=== PATIENT | male | born 1955 | race Caucasian/White ===

== ENCOUNTER 2022-08-26 06:43 | Inpatient (IN) | payer BC, MEDICARE ==
[~2022-08-26] VITALS: Ht 188 cm; Wt 106.8 kg
[2022-08-26] VITALS (20 sets, daily range): BP systolic 83–132; BP diastolic 22–86
[~2022-08-26 06:43] MED LIST: ASPI-611 PO; ATOR80TA PO; EZET10TA6 PO; FENO134C22 PO; LOSA25TA96 PO; NITR0.4T SL; VALA-7 PO
[2022-08-26] MEDS ORDERED: heparin 10,000 units/1 ML INJ IV PRN (06:50)
[2022-08-26] MEDS ORDERED: heparin 10,000 units/1 ML INJ IV ONE (06:50)
[2022-08-26] MEDS ORDERED: heparin 25,000 UNIT/250ml bag 250 ML IV PRN (06:50)
[2022-08-26 07:01] LABS: BASOPHILS # (AUTO) 0.1 X10'3 (0-0.2); BASOPHILS % (AUTO) 0.7 % (0-1); EOSINOPHILS # (AUTO) 0.5 X10'3 (0-0.9); EOSINOPHILS % (AUTO) 5.7 % (0-6); HEMATOCRIT 47.3 % (42.0-52.0); HEMOGLOBIN 16.3 g/dl (14.0-17.9); LYMPHOCYTES # (AUTO) 3.3 X10'3 (1.1-4.8); LYMPHOCYTES % (AUTO) 38.4 % (21-51); MEAN CORPUSCULAR HEMOGLOBIN 33.4 PG (27.0-31.0); MEAN CORPUSCULAR HGB CONC 34.4 g/dL (33.0-36.5); MEAN CORPUSCULAR VOLUME 97.1 FL (78-98); MONOCYTES # (AUTO) 0.6 X10'3 (0-0.9); MONOCYTES % (AUTO) 7.3 % (2-12); NEUTROPHILS # (AUTO) 4.2 X10'3 (1.8-7.7); NEUTROPHILS % (AUTO) 47.9 % (42-75); PLATELET COUNT 316 X10'3 (140-440); RED BLOOD COUNT 4.87 X10'6 (4.70-6.10); RED CELL DISTRIBUTION WIDTH 13.8 % (11.5-14.5); WHITE BLOOD COUNT 8.7 X10'3 (4.5-11.0)
[2022-08-26] MEDS ORDERED: fentaNYL/PF 50MCG/1 ML 2ML syringe ONE ×3 (07:06→09:23)
[2022-08-26] MEDS ORDERED: LIDOcaine 1% 30ml preserv. free vial ONE (07:06)
[2022-08-26] MEDS ORDERED: midazolam 1 mg/ML 2ml injection ONE ×2 (07:06→08:03)
[2022-08-26] MEDS ORDERED: iohexol 350MG/ML 100ml bottle IV ONE ×3 (07:06→09:00)
[2022-08-26] MEDS ORDERED: heparin 1,000unit/ml 10ml vial 10 ML ONE (07:06)
--- NOTE | 2022-08-26 07:06 | NUR ---
is at bedside
--- NOTE | 2022-08-26 07:09 | NUR ---
Dr Israel at BS
[2022-08-26] MEDS ORDERED: verapamil 2.5 mg/ml inj IV ONE (07:16)
[2022-08-26 07:34] LABS: APTT 41 SECONDS (22-32)
[2022-08-26] MEDS ORDERED: amiodarone 50MG/ML inj IV ONE (07:37)
[2022-08-26] MEDS ORDERED: magnesium 1 GM/2 ML inj ONE (07:38)
[2022-08-26] MEDS ORDERED: amiodarone 150mg/dext, iso-os 100 ML IV ONE (07:38)
[2022-08-26 07:44] LABS: ALANINE AMINOTRANSFERASE 38 U/L (12-78); ALBUMIN 3.7 G/DL (3.4-5.0); ALBUMIN/GLOBULIN RATIO 1.1 (1.1-1.5); ALKALINE PHOSPHATASE 64 IU/L (46-116); ANION GAP 9 (8-16); ASPARTATE AMINO TRANSFERASE 41 U/L (10-37); BILIRUBIN,TOTAL 0.6 MG/DL (0.1-1.0); BLOOD UREA NITROGEN 16 MG/DL (7-18); BUN/CREATININE RATIO 12.9 (5.4-32.0); CHLORIDE 106 MMOL/L (99-107); CREATININE 1.24 MG/DL (0.60-1.10); GLUCOSE 146 MG/DL (70-104); POTASSIUM 4.4 MMOL/L (3.5-5.1); SODIUM 139 MMOL/L (135-145); TOTAL CARBON DIOXIDE 24.1 MMOL/L (24-32); eGFR 58 ML/MIN
[2022-08-26] MEDS ORDERED: HEPARIN SOD PORK IV ONE (08:00)
[2022-08-26] MEDS ORDERED: NACL IV ONE (08:00)
[2022-08-26] MEDS ORDERED: heparin 10,000 units/1 ML INJ ONE (08:00)
[2022-08-26] MEDS ORDERED: nitroGLYCERIN in D5W 50mg/250ml (Tridil) infusion IV ONE (08:00)
[2022-08-26] MEDS ORDERED: heparin 1,000 UNITS/NS 500ml 500 ML ONE (08:16)
[2022-08-26] MEDS ORDERED: tirofiban 5mg in NS 100mL 100 ML IV ONE (08:27)
[2022-08-26] MEDS ORDERED: DOPamine 400mg/D5W 250ml 250 ML IV ONE (08:38)
[2022-08-26] MEDS ORDERED: ondansetron/PF 4mg/2ml inj ONE (09:38)
[2022-08-26] MEDS ORDERED: ticagrelor 90mg tablet ONE (09:48)
[2022-08-26] MEDS: tirofiban 12.5mg in NS 250mL IV SCH ×2 (11:58→23:29)
[2022-08-26] MEDS ORDERED: NIRM1TAB PO (12:27)
[2022-08-26] MEDS ORDERED: nitroGLYCERIN 0.4mg SUBLingual tab SL PRN (13:00)
[2022-08-26] MEDS ORDERED: aspirin 81mg tab.chew PO ONE (13:15)
[2022-08-26] MEDS: sodium bicarbonate (8.4%) inj. 150 MEQ in sodium chloride 0.45% 1,000 ML IV SCH (13:22)
[2022-08-26] MEDS: amiodarone/D5 360MG/200ML BAG 200 ML IV SCH ×2 (14:17→19:55)
[2022-08-26 15:37] LABS: CHOL/HDL RATIO 3.4 (0.00-4.99); CHOLESTEROL 100 MG/DL (0-200); HDL CHOLESTEROL 29 MG/DL (35-60); LDL CHOLESTEROL 56 MG/DL (50-100); TRIGLYCERIDES 61 MG/DL (20-135)
[2022-08-26] MEDS ORDERED: magnesium Cl slow-release 64mg tablet PO PRN (16:15)
[2022-08-26] MEDS ORDERED: morphine 2 MG/ML inj. syringe IV PRN (16:15)
[2022-08-26] MEDS ORDERED: HYDROcodone/acetaminophen 5mg/325mg tablet PO PRN (16:15)
[2022-08-26] MEDS ORDERED: potassium Cl 40MEQ/1/2NS 520ml 520 ML IV PRN (16:15)
[2022-08-26] MEDS ORDERED: potassium Cl 20 mEq SR tablet PO PRN (16:15)
[2022-08-26] MEDS ORDERED: ondansetron/PF 4mg/2ml inj IV PRN (16:15)
[2022-08-26] MEDS ORDERED: magnesium 4gm in 100ml NS 100 ML IV PRN (16:15)
[2022-08-26] MEDS: acetaminophen 325mg tablet PO PRN (17:23)
[2022-08-26 18:06] LABS: BASOPHILS % (AUTO) 0.2 % (0-1); EOSINOPHILS % (AUTO) 0.2 % (0-6); HEMATOCRIT 31.1 % (42.0-52.0); HEMOGLOBIN 10.6 g/dl (14.0-17.9); LYMPHOCYTES # (AUTO) 1.6 X10'3 (1.1-4.8); LYMPHOCYTES % (AUTO) 14.9 % (21-51); MEAN CORPUSCULAR HEMOGLOBIN 33.3 PG (27.0-31.0); MEAN CORPUSCULAR HGB CONC 34.1 g/dL (33.0-36.5); MEAN CORPUSCULAR VOLUME 97.7 FL (78-98); MEAN PLATELET VOLUME 7.2 FL (7.4-10.4); MONOCYTES # (AUTO) 0.6 X10'3 (0-0.9); NEUTROPHILS # (AUTO) 8.4 X10'3 (1.8-7.7); NEUTROPHILS % (AUTO) 78.7 % (42-75); PLATELET COUNT 211 X10'3 (140-440); RED BLOOD COUNT 3.18 X10'6 (4.70-6.10); RED CELL DISTRIBUTION WIDTH 13.5 % (11.5-14.5); WHITE BLOOD COUNT 10.7 X10'3 (4.5-11.0)
[2022-08-26] MEDS ORDERED: acetaminophen 325mg tablet PO PRN (18:15)
[2022-08-26] MEDS: ticagrelor 90mg tablet PO SCH (20:00)
[2022-08-26 22:11] LABS: MAGNESIUM 1.7 MG/DL (1.5-2.4); POTASSIUM 3.5 MMOL/L (3.5-5.1)
[2022-08-26] MEDS: DOPamine 400MG/D5W 250ML CRITICAL CARE IV SCH (22:11)
[2022-08-26] MEDS: PEG 400/HYPROMELLOSE/GLYCERIN 15ml bottle EACHEYE PRN (22:13)
[2022-08-26] MEDS: acetylcysteine 200 MG/ml 4ml vial PO SCH (22:16)
[2022-08-27] VITALS (17 sets, daily range): BP systolic 111–148; BP diastolic 52–79
[2022-08-27 00:22] LABS: APTT 52 SECONDS (22-32)
[2022-08-27] MEDS: DOPamine 400MG/D5W 250ML CRITICAL CARE IV SCH ×2 (01:04→13:33)
[2022-08-27] MEDS: sodium bicarbonate (8.4%) inj. 150 MEQ in sodium chloride 0.45% 1,000 ML IV SCH ×2 (01:11→11:20)
[2022-08-27] MEDS: amiodarone/D5 360MG/200ML BAG 200 ML IV SCH ×5 (01:11→19:55)
[2022-08-27 03:21] LABS: BASOPHILS % (AUTO) 0.2 % (0-1); EOSINOPHILS # (AUTO) 0.3 X10'3 (0-0.9); EOSINOPHILS % (AUTO) 2.4 % (0-6); HEMATOCRIT 35.6 % (42.0-52.0); LYMPHOCYTES # (AUTO) 3.2 X10'3 (1.1-4.8); LYMPHOCYTES % (AUTO) 27.1 % (21-51); MEAN CORPUSCULAR HGB CONC 33.8 g/dL (33.0-36.5); MEAN CORPUSCULAR VOLUME 97.7 FL (78-98); MEAN PLATELET VOLUME 7.3 FL (7.4-10.4); MONOCYTES # (AUTO) 0.8 X10'3 (0-0.9); MONOCYTES % (AUTO) 6.7 % (2-12); NEUTROPHILS # (AUTO) 7.4 X10'3 (1.8-7.7); NEUTROPHILS % (AUTO) 63.6 % (42-75); PLATELET COUNT 261 X10'3 (140-440); RED BLOOD COUNT 3.64 X10'6 (4.70-6.10); RED CELL DISTRIBUTION WIDTH 13.2 % (11.5-14.5); WHITE BLOOD COUNT 11.7 X10'3 (4.5-11.0)
[2022-08-27 04:12] LABS: ALANINE AMINOTRANSFERASE 52 U/L (12-78); ALBUMIN 2.9 G/DL (3.4-5.0); ALBUMIN/GLOBULIN RATIO 1.1 (1.1-1.5); ALKALINE PHOSPHATASE 50 IU/L (46-116); ANION GAP 10 (8-16); ASPARTATE AMINO TRANSFERASE 255 U/L (10-37); BILIRUBIN,TOTAL 0.5 MG/DL (0.1-1.0); BLOOD UREA NITROGEN 14 MG/DL (7-18); BUN/CREATININE RATIO 14.7 (5.4-32.0); CALCIUM 8.2 MG/DL (8.5-10.1); CHLORIDE 105 MMOL/L (99-107); CHOL/HDL RATIO 3.5 (0.00-4.99); CHOLESTEROL 138 MG/DL (0-200); CREATININE 0.95 MG/DL (0.60-1.10); GLUCOSE 131 MG/DL (70-104); HDL CHOLESTEROL 40 MG/DL (35-60); LDL CHOLESTEROL 80 MG/DL (50-100); POTASSIUM 3.3 MMOL/L (3.5-5.1); SODIUM 139 MMOL/L (135-145); TOTAL CARBON DIOXIDE 24.5 MMOL/L (24-32); TOTAL PROTEIN 5.5 G/DL (6.4-8.2); TRIGLYCERIDES 151 MG/DL (20-135); eGFR 79 ML/MIN
[2022-08-27] MEDS: potassium Cl 20 mEq SR tablet PO PRN ×2 (04:50→09:19)
[2022-08-27] MEDS: losartan 25mg tablet PO SCH (08:00)
[2022-08-27] MEDS ORDERED: fenofibrate 145mg tablet PO SCH (08:00)
[2022-08-27] MEDS: carVEDilol 3.125mg tablet PO SCH ×2 (08:00→19:40)
[2022-08-27] MEDS: acetylcysteine 200 MG/ml 4ml vial PO SCH ×2 (09:18→20:00)
[2022-08-27] MEDS: atorvastatin 20mg tablet PO SCH (09:20)
[2022-08-27] MEDS: ezetimibe 10mg tablet PO SCH (09:20)
[2022-08-27] MEDS: ticagrelor 90mg tablet PO SCH ×2 (09:21→19:40)
[2022-08-27] MEDS: aspirin 81mg, enteric-coated 1 TAB TABLET.DR PO SCH (09:21)
[2022-08-27] MEDS ORDERED: ondansetron 4mg rapidly disintigrating tab PO PRN (13:05)
[2022-08-27] MEDS: PEG 400/HYPROMELLOSE/GLYCERIN 15ml bottle EACHEYE PRN (13:30)
[2022-08-27] MEDS: tirofiban 12.5mg in NS 250mL IV SCH (14:43)
--- NOTE | 2022-08-27 16:22 | NUR ---
Report called to marcie Winchester transferred to room 3010 via hospital bed attached to media monitor.
[2022-08-27] MEDS: amiodarone 200mg tablet PO SCH (19:39)
[2022-08-27] MEDS: temazepam 15mg capsule PO PRN (19:40)
[2022-08-27] MEDS: acetaminophen 325mg tablet PO PRN (19:40)
[2022-08-28 02:00] VITALS: BP 144/69
[2022-08-28] MEDS: DOPamine 400MG/D5W 250ML CRITICAL CARE IV SCH (02:02)
[2022-08-28] MEDS: tirofiban 12.5mg in NS 250mL IV SCH (02:53)
--- NOTE | 2022-08-28 02:57 | NUR ---
Received pt. awake alert oriented in semi flat position; unable to remian flat due to back pain. Pt. has a R fem Femstop, removed at 1900 pm tolerated well. There is a mild size soft bruise past the marked line. Small drop of old blood on the dressing that remains contained. R DP and PT pulses are palpable sats 99%. No c/o pain or discomfort. Takes po meds well. Right arm IV with Amiodarone and left arm with Aggrastat. Pt. voids per urinal ariana orange and clear. 2200 IV Cordorone complete. 0120 Aggrastat complete. Pt. able to ambulate toBR with minimal assistance. No c/o pain. Plan for home if cleared by Cardio.
[2022-08-28 06:00] VITALS: BP 140/65
[2022-08-28 07:12] LABS: BASOPHILS % (AUTO) 0.4 % (0-1); EOSINOPHILS # (AUTO) 0.3 X10'3 (0-0.9); EOSINOPHILS % (AUTO) 3.3 % (0-6); HEMATOCRIT 32.5 % (42.0-52.0); HEMOGLOBIN 11.4 g/dl (14.0-17.9); LYMPHOCYTES # (AUTO) 1.6 X10'3 (1.1-4.8); LYMPHOCYTES % (AUTO) 17.9 % (21-51); MEAN CORPUSCULAR VOLUME 97.1 FL (78-98); MEAN PLATELET VOLUME 7.3 FL (7.4-10.4); MONOCYTES # (AUTO) 0.7 X10'3 (0-0.9); MONOCYTES % (AUTO) 7.6 % (2-12); NEUTROPHILS # (AUTO) 6.4 X10'3 (1.8-7.7); NEUTROPHILS % (AUTO) 70.8 % (42-75); PLATELET COUNT 217 X10'3 (140-440); RED BLOOD COUNT 3.35 X10'6 (4.70-6.10); RED CELL DISTRIBUTION WIDTH 13.1 % (11.5-14.5)
[2022-08-28 07:24] LABS: ALANINE AMINOTRANSFERASE 54 U/L (12-78); ALBUMIN 2.9 G/DL (3.4-5.0); ALKALINE PHOSPHATASE 51 IU/L (46-116); ANION GAP 9 (8-16); ASPARTATE AMINO TRANSFERASE 144 U/L (10-37); BILIRUBIN,TOTAL 1.2 MG/DL (0.1-1.0); BLOOD UREA NITROGEN 13 MG/DL (7-18); BUN/CREATININE RATIO 12.4 (5.4-32.0); CALCIUM 8.4 MG/DL (8.5-10.1); CHLORIDE 108 MMOL/L (99-107); CREATININE 1.05 MG/DL (0.60-1.10); GLUCOSE 110 MG/DL (70-104); POTASSIUM 3.6 MMOL/L (3.5-5.1); SODIUM 142 MMOL/L (135-145); TOTAL CARBON DIOXIDE 24.6 MMOL/L (24-32); TOTAL PROTEIN 5.7 G/DL (6.4-8.2); eGFR 71 ML/MIN
[2022-08-28] MEDS: ticagrelor 90mg tablet PO SCH ×2 (08:00→22:58)
[2022-08-28] MEDS: acetylcysteine 200 MG/ml 4ml vial PO SCH ×2 (08:00→20:00)
[2022-08-28] MEDS: amiodarone 200mg tablet PO SCH ×2 (09:06→22:58)
[2022-08-28] MEDS: carVEDilol 3.125mg tablet PO SCH (09:06)
[2022-08-28] MEDS: losartan 25mg tablet PO SCH (09:06)
[2022-08-28] MEDS: ezetimibe 10mg tablet PO SCH (09:07)
[2022-08-28] MEDS: aspirin 81mg, enteric-coated 1 TAB TABLET.DR PO SCH (09:07)
[2022-08-28] MEDS: atorvastatin 20mg tablet PO SCH (09:07)
[2022-08-28 09:40] VITALS: BP 145/68
[2022-08-28] MEDS ORDERED: potassium Cl 20 mEq SR tablet PO STA (11:36)
[2022-08-28] MEDS ORDERED: carVEDilol 3.125mg tablet PO ONE (11:38)
[2022-08-28] MEDS ORDERED: magnesium oxide 400mg tablet PO ONE (11:40)
--- NOTE | 2022-08-28 12:30 | NUR ---
informed Dr[place] [id number]
[2022-08-28 14:00] VITALS: BP 137/65
[2022-08-28 18:00] VITALS: BP 123/52
--- NOTE | 2022-08-28 18:00 | NUR ---
Patient in room PCU 3010. I have received report from Edgard BENDER and had the opportunity to ask questions and assume patient care.
[2022-08-28] MEDS: carvedilol 6.25mg tablet PO SCH (22:58)
[2022-08-28] MEDS: temazepam 15mg capsule PO PRN (22:58)
[2022-08-29 06:00] VITALS: BP 138/68
--- NOTE | 2022-08-29 06:42 | NUR ---
Problems reprioritized. Patient report given, questions answered & plan of care reviewed with Edgard BENDER.
[2022-08-29 06:43] LABS: BASOPHILS # (AUTO) 0.1 X10'3 (0-0.2); BASOPHILS % (AUTO) 0.9 % (0-1); EOSINOPHILS # (AUTO) 0.4 X10'3 (0-0.9); LYMPHOCYTES # (AUTO) 2.1 X10'3 (1.1-4.8); LYMPHOCYTES % (AUTO) 19.7 % (21-51); MEAN CORPUSCULAR HEMOGLOBIN 33.5 PG (27.0-31.0); MEAN CORPUSCULAR HGB CONC 34.3 g/dL (33.0-36.5); MEAN CORPUSCULAR VOLUME 97.8 FL (78-98); MEAN PLATELET VOLUME 7.2 FL (7.4-10.4); MONOCYTES # (AUTO) 0.7 X10'3 (0-0.9); MONOCYTES % (AUTO) 6.8 % (2-12); NEUTROPHILS # (AUTO) 7.5 X10'3 (1.8-7.7); NEUTROPHILS % (AUTO) 68.6 % (42-75); PLATELET COUNT 261 X10'3 (140-440); RED BLOOD COUNT 3.58 X10'6 (4.70-6.10); WHITE BLOOD COUNT 10.8 X10'3 (4.5-11.0)
[2022-08-29 07:10] LABS: ALANINE AMINOTRANSFERASE 59 U/L (12-78); ALBUMIN 3.4 G/DL (3.4-5.0); ALKALINE PHOSPHATASE 64 IU/L (46-116); ANION GAP 8 (8-16); ASPARTATE AMINO TRANSFERASE 96 U/L (10-37); BILIRUBIN,TOTAL 1.8 MG/DL (0.1-1.0); BLOOD UREA NITROGEN 15 MG/DL (7-18); BUN/CREATININE RATIO 14.6 (5.4-32.0); CHLORIDE 106 MMOL/L (99-107); CREATININE 1.03 MG/DL (0.60-1.10); GLUCOSE 119 MG/DL (70-104); POTASSIUM 3.9 MMOL/L (3.5-5.1); SODIUM 140 MMOL/L (135-145); TOTAL PROTEIN 6.8 G/DL (6.4-8.2); eGFR 72 ML/MIN
[2022-08-29 07:31] VITALS: BP_SYST 138
[2022-08-29] MEDS: ticagrelor 90mg tablet PO SCH (07:31)
[2022-08-29] MEDS: PEG 400/HYPROMELLOSE/GLYCERIN 15ml bottle EACHEYE PRN (07:31)
[2022-08-29] MEDS: losartan 25mg tablet PO SCH (07:31)
[2022-08-29] MEDS: amiodarone 200mg tablet PO SCH (07:31)
[2022-08-29] MEDS: aspirin 81mg, enteric-coated 1 TAB TABLET.DR PO SCH (07:31)
[2022-08-29] MEDS: ezetimibe 10mg tablet PO SCH (07:31)
[2022-08-29] MEDS: carvedilol 6.25mg tablet PO SCH (07:31)
[2022-08-29] MEDS: atorvastatin 20mg tablet PO SCH (07:31)
[2022-08-29] MEDS: acetylcysteine 200 MG/ml 4ml vial PO SCH (08:00)
[2022-08-29] MEDS ORDERED: CARV6.253 PO (08:13)
[2022-08-29] MEDS ORDERED: TICA90TA PO (08:13)
[2022-08-29] MEDS ORDERED: AMIO200T67 PO (08:26)
--- NOTE | 2022-08-29 12:07 | NUR ---
pt discharged in stable condition. walked downstairs with family. discharge instructions and education reviewed with pt. all questions/concerns addressed. Gideon in his possession. IV and tele d/c'd.
== END 2022-08-29 12:04 | disposition home or self-care (01) | DRG 246 ==
LOC: ER 06:43 → CICU 2S 13:30 → PCU 3S 08-27 16:05
PROVIDERS: ADMIT Family Medicine; ATTEND Family Medicine
PROC: 4A023N7 Measurement of Cardiac Sampling and Pressure, Left Heart, Percutaneous Approach (ICD-10-PCS; principal; 2022-08-26)
PROC: 027034Z Dilation of Coronary Artery, One Artery with Drug-eluting Intraluminal Device, Percutaneous Approach (ICD-10-PCS; 2022-08-26)
PROC: 02C03ZZ Extirpation of Matter from Coronary Artery, One Artery, Percutaneous Approach (ICD-10-PCS; 2022-08-26)
PROC: B2111ZZ Fluoroscopy of Multiple Coronary Arteries using Low Osmolar Contrast (ICD-10-PCS; 2022-08-26)
PROC: B2151ZZ Fluoroscopy of Left Heart using Low Osmolar Contrast (ICD-10-PCS; 2022-08-26)
PROC: B2131ZZ Fluoroscopy of Multiple Coronary Artery Bypass Grafts using Low Osmolar Contrast (ICD-10-PCS; 2022-08-26)
PROC: B2181ZZ Fluoroscopy of Left Internal Mammary Bypass Graft using Low Osmolar Contrast (ICD-10-PCS; 2022-08-26)
PROC: 5A2204Z Restoration of Cardiac Rhythm, Single (ICD-10-PCS; 2022-08-26)
PROC: 3E033PZ Introduction of Platelet Inhibitor into Peripheral Vein, Percutaneous Approach (ICD-10-PCS; 2022-08-26)
DX: I21.19 ST elevation (STEMI) myocardial infarction involving other coronary artery of inferior wall (principal); U07.1 COVID-19; I47.20 Ventricular tachycardia, unspecified; I25.810 Atherosclerosis of coronary artery bypass graft(s) without angina pectoris; T82.855A Stenosis of coronary artery stent, initial encounter; E78.00 Pure hypercholesterolemia, unspecified; F10.90 Alcohol use, unspecified, uncomplicated; I12.9 Hypertensive chronic kidney disease with stage 1 through stage 4 chronic kidney disease, or unspecified chronic kidney disease; Y83.2 Surgical operation with anastomosis, bypass or graft as the cause of abnormal reaction of the patient, or of later complication, without mention of misadventure at the time of the procedure; E87.6 Hypokalemia; N18.30 Chronic kidney disease, stage 3 unspecified; I25.10 Atherosclerotic heart disease of native coronary artery without angina pectoris; I25.2 Old myocardial infarction; Z79.02 Long term (current) use of antithrombotics/antiplatelets; Z79.82 Long term (current) use of aspirin; Z82.49 Family history of ischemic heart disease and other diseases of the circulatory system; Z83.3 Family history of diabetes mellitus; Z87.442 Personal history of urinary calculi; Z87.891 Personal history of nicotine dependence; Z95.5 Presence of coronary angioplasty implant and graft; Y92.89 Other specified places as the place of occurrence of the external cause
CPT/HCPCS: 93306; 93459; 99291; C9606; 36415; 71045; 80053; 80061; 83735; 83880; 84132; 84484; 85025; 85347; 85610; 85730; 87081; 87635; 93005; 99152; 99153; A6213; A6258; A6402; A6449; C1725; C1751; C1757; C1769; C1874; C1894; C9803; G0378; J0282; J1265; J1644; J2250; J2405; J3010; J3246; J3475; J3490; J7030; Q9967